=== PATIENT | male | born 1995 | race Caucasian/White ===

== ENCOUNTER 2017-05-24 13:54 | Emergency (ER) | payer BC ==
--- NOTE | 2017-05-24 14:01 | ED.PDOC ---
History of Present Illness - General Chief Complaint: Bite: Animal/Insect/Human Stated Complaint: dog bite ring finger Time Seen by Provider: 05/24/17 13:57 Source: patient Exam Limitations: no limitations - History of Present Illness Initial Comments: Vinayak Lemus 21 y/o male stated that he was trying to break a fight on his two pet dogs at home and was accidentally bitten on the left ring finger by one of the dog.Tried to call up Animal control but [employer] phone line out. Occurred: just prior to arrival Pain - Upper Extremity: moderate: Hand, left Method of Injury: other - see hpi-dog bite Improving Factors: nothing Worsening Factors: nothing Associated Symptoms: see hpi Allergies/Adverse Reactions: Allergies NO KNOWN ALLERGY Allergy (Verified 05/24/17 14:05) Home Medications: Ambulatory Orders NK [NK] 05/24/17 Review of Systems - Review of Systems Constitutional: States: no symptoms reported EENTM: States: no symptoms reported Respiratory: States: no symptoms reported Cardiology: States: no symptoms reported Gastrointestinal/Abdominal: States: no symptoms reported Genitourinary: States: no symptoms reported Neurological: States: see HPI All other Systems: Reviewed and Negative, No Change from Baseline Past Medical History (General) - Patient Medical History Surgical History: tonsillectomy, other - hernia repair Family Medical History - Family History Mother Family History: No Known Physical Exam - Physical Exam General Appearance: Alert, Comfortable, No apparent distress Eyes, Ears, Nose, Throat Exam: normal ENT inspection, pharynx normal Neck: full range of motion, supple Cardiovascular/Respiratory: normal peripheral pulses, normal breath sounds Abdominal Exam: non-tender Back Exam: no vertebral tenderness Shoulder Exam: no evidence of injury Elbow/Forearm Exam: no evidence of injury Wrist Exam: no evidence of injury Hand Exam: nail injury - partial nail avulsion with proximal half of nail avulsed from nail bed ring finger left Procedures - Laceration/Wound Repair Left Finger Wound Length (cm): 0 Wound's Depth, Shape: nail-avulsed Wound Explored: clean Irrigated w/ Saline (cc's): 30 Betadine Prep?: No - hibiclens Anesthesia: 1% Lidocaine Volume Anesthetic (cc's): 8 - digital nerve block Splint Applied?: Yes - finger splint preformed Type of Splint Applied: frog finger splint Sling Applied?: No Progress: Left ring finger cleanse with hibiclens then digital nerve block done noted partially avulsed nail of the ring finger proximally and cuticles holding nail was gone then the rest of the nail was from the nailbed with the scissor tip pressure done on the finger for bleeders then covered with xerofoam gauze with covered with sterile gauze followed by wrapping with coban and application of splint. Departure - Departure Clinical Impression: Fracture of distal phalanx of finger of left hand Dog bite of finger Qualifiers: Encounter type: initial encounter Qualified Code(s): S61.259A - Open bite of unspecified finger without damage to nail, initial encounter; W54.0XXA - Bitten by dog, initial encounter Nail avulsion, finger Qualifiers: Encounter type: initial encounter Qualified Code(s): S61.309A - Unspecified open wound of unspecified finger with damage to nail, initial encounter Time of Disposition: 15:52 Disposition: Discharge to Home or Self Care Condition: Good Departure Forms: ED Discharge - Pt. Copy, Patient Portal Self Enrollment Instructions: DI for Animal Bites, DI for Finger Fracture Referrals: Elio Florence III, MD [Primary Care Provider] - 1-2 Weeks Home Medications: Ambulatory Orders NK [NK] 05/24/17 Additional Instructions: Follow up with Dr. Gottlieb orthopedist 05/25/2017 call his office for appointment/ for recheck;Return to emergency room as needed
[2017-05-24 14:05] VITALS: TEMP 99.3
[2017-05-24] MEDS ORDERED: LIDOCAINE 1% 10 ML VIAL INJ ONE (14:58)
[2017-05-24] MEDS ORDERED: HYDROcodone 10MG/APAP 325MG 1 EA TAB PO ONE (15:54)
[2017-05-24 16:08] VITALS: BP 131/71; O2SAT 98
--- NOTE | 2017-05-24 21:07 | RAD ---
3 views of the left fourth finger. Indication: Dog Bite Comparison: None. Impression: Mildly comminuted, predominantly transversely oriented nondisplaced fracture proximal metaphysis of the fourth distal phalanx noted without clear intra-articular extension. No dislocation identified. Electronically signed by: Farhat Escamilla MD 05/24/2017 2:47 PM [facility]
== END 2017-05-24 16:11 | disposition home or self-care (01) ==
LOC: ER 13:54
DX: S62.635A Displaced fracture of distal phalanx of left ring finger, initial encounter for closed fracture (principal); S61.355A Open bite of left ring finger with damage to nail, initial encounter; W54.0XXA Bitten by dog, initial encounter; Y92.9 Unspecified place or not applicable

== ENCOUNTER → 2017-06-03 | Outpatient (CLI) | payer BC ==
--- NOTE | 2017-06-04 10:55 | RAD ---
Three views of the right fourth digit. INDICATION: Left ring finger pain. COMPARISON: Left ring finger radiographs from 05/24/2017. FINDINGS: There is similar appearance of transversely oriented fractures through the proximal aspect of the distal phalanx of the left fourth digit. There may be subtle increased sclerosis and periosteal new bone. Remaining visualized osseous structures appear intact, and well aligned. Joint spaces appear preserved. Bone mineralization appears within normal limits. Soft tissues have a normal radiographic appearance. IMPRESSION: Similar appearance of the fracture through the proximal aspect of the distal phalanx of the left fourth digit with possible minimal healing. Electronically signed by: Kerwin Trinidad MD 06/04/2017 10:54 AM [facility] Workstation: [id number]
== END | disposition home or self-care (01) ==
LOC: RAD 08:13
PROVIDERS: ATTEND Orthopaedic Surgery
DX: S62.665A Nondisplaced fracture of distal phalanx of left ring finger, initial encounter for closed fracture (principal)

== ENCOUNTER → 2017-06-23 | Outpatient (CLI) | payer BC ==
--- NOTE | 2017-06-25 09:58 | RAD ---
Three views of the left fourth digit. INDICATION: Fracture follow-up. COMPARISON: Left finger radiographs from 06/03/2017. Findings: There is subtle periosteal new bone and increased sclerosis about the fracture site. Fracture plane is still evident. No increased distraction or displacement of the fracture. No new acute osseous abnormality appreciated. There is mild soft tissue swelling about the distal phalanx of the left fourth digit. Joint spaces appear preserved. Bone mineralization appears within normal limits. IMPRESSION: Subtle healing of the fracture of the distal phalanx of the left fourth digit. Electronically signed by: Kerwin Trinidad MD 06/25/2017 9:57 AM [facility] Workstation: [id number]
== END ==
LOC: RAD 07:44
PROVIDERS: ATTEND Orthopaedic Surgery
DX: S62.605A Fracture of unspecified phalanx of left ring finger, initial encounter for closed fracture (principal)